=== PATIENT | female | born 1965 | race Caucasian/White ===

== ENCOUNTER 2019-01-20 07:34 | Inpatient (IN) ==
--- NOTE | 2018-12-31 15:57 | PAT Medication Instructions ---
Medication Instructions Date of Service December 31, 2018 Home Medications Habitrol Patch 1 dose TOPICAL DAILY calcium carbonate-vitamin D3 [Calcium 600 + D(3)] 1 cap PO QAM gabapentin 100 mg PO HS magnesium 200 mg PO QAM naproxen sodium [Aleve] 220 mg PO BID PRN omega 6-gdp-ryc-fish oil [Fish Oil] 1 cap PO QAM ranitidine HCl [Acid Youth [employer] Judge (ranitidine)] 150 mg PO QAM simvastatin 20 mg PO QPM ASK your surgeon for instructions naproxen sodium [Aleve] 220 mg PO BID PRN STOP taking 2 weeks before surgery (or as soon as possible if surgery is within 2 weeks) omega 2-qqn-afw-fish oil [Fish Oil] 1 cap PO QAM STOP taking 24 hours before surgery Habitrol Patch 1 dose TOPICAL DAILY DO NOT take the morning of surgery calcium carbonate-vitamin D3 [Calcium 600 + D(3)] 1 cap PO QAM magnesium 200 mg PO QAM ranitidine HCl [Acid Youth [employer] Judge (ranitidine)] 150 mg PO QAM Take evening before surgery gabapentin 100 mg PO HS simvastatin 20 mg PO QPM Other Notes If you have any questions please call us at [phone] or [phone] or [phone] or [phone]
--- NOTE | 2019-01-01 08:43 | Anesthesiology Consultation ---
Date of Service January 01, 2019 Assessment & Plan (1) Encounter for pre-operative examination: - Check test AM DOS Chart Review Chart Review: Pending: Refer to Additional Notes / Consult section (pending preop testing (labs, EKG, CXR)) and Patient seen in Pre Admission Testing Teaching & Discussion Pre-Anesthesia Teaching/Discussion Notes: Instructed NPO after midnight before surgery,except medications with 15 cc of water. Medication instructions provided according to the PAT guidelines. History Surgery Operation Date: 01/20/19 10:25 Proposed Procedures p L2-L5 Decompression and Fusion, Spinal Cord Monitoring - Surya Nguyen, Height/Weight Height: 5 ft 8.5 in Weight: 82.9 kg Allergies Allergy/AdvReac Type Severity Reaction Status Date / Time acetaminophen [From Percocet] AdvReac Vomiting Verified 12/26/18 08:03 atorvastatin [From Lipitor] AdvReac Muscle Verified 01/01/19 08:49 cramping oxycodone [From Percocet] AdvReac Vomiting Verified 12/26/18 08:03 Medications Home Medications Medication Instructions Recorded Confirmed Last Taken Habitrol Patch 1 dose TOPICAL DAILY 12/26/18 12/26/18 Unknown calcium carbonate-vitamin D3 1 cap PO QAM 12/26/18 12/26/18 Unknown [Calcium 600 + D(3)] gabapentin 100 mg PO HS 12/26/18 12/26/18 Unknown magnesium 200 mg PO QAM 12/26/18 12/26/18 Unknown naproxen sodium [Aleve] 220 mg PO BID PRN 12/26/18 12/26/18 Unknown omega 1-okj-qtp-fish oil [Fish Oil] 1 cap PO QAM 12/26/18 12/26/18 Unknown ranitidine HCl [Acid Channel Machine Operator 150 mg PO QAM 12/26/18 12/26/18 Unknown (ranitidine)] simvastatin 20 mg PO QPM 12/26/18 12/26/18 Unknown Past Medical History Medical History Degenerative disc disease GERD (gastroesophageal reflux disease) controlled 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; unknown etiology- resolved Hyperlipidemia Migraine Osteoarthritis Spinal stenosis Exercise / Class Metabolic Activity II 4-5 Yardwork/Stairs/Walk up hill Past Family History Family History Sister Epilepsy Family hx of colon cancer Brother Throat cancer Family/Other Family history of diabetes mellitus Mother Heart disease Father Heart disease Past Surgical History Surgical History History of D&C + hysteroscopy History of bone marrow biopsy History of cardiac cath 2013= NO STENTS History of colonoscopy History of decompression of ulnar nerve Lt History of esophagogastroduodenoscopy (EGD) History of sinus surgery History of tooth extraction Status post left foot surgery Past Anesthesia History No Hx of Anesthesia Complications (except post-op nausea) and No Family Hx of Anesthesia Complications History of PONV No Hx of Motion Sickness and History of PONV (+ nausea) Social History Smoking Status: Current every day smoker tobacco type: cigarettes Smoking cigarettes per day: 7-14 per day x intermittent 20+ years Do You Dip or Chew Tobacco: No Hx Alcohol Use: No Hx Substance Use: No substance use type: does not use Review of Systems URI/cough/sinus drainage x few days. Reflux controlled. Patient denies chest pain, shortness of breath, dyspnea on exertion, wheezing, palpitations. Physical Exam Vital Signs Last Vital Signs Temp 37.2 C 01/01/19 08:45 Pulse 75 01/01/19 08:45 Resp 16 01/01/19 08:45 BP 111/73 01/01/19 08:45 Pulse Ox 97 01/01/19 08:45 PHYSICAL Full neck and c-spine range of motion. Full TMJ range of motion. TMD 2.5 finger breaths Mallampati Score 2 Dentition: missing molars Lungs: clear throughout to auscultation Cardiac: regular rate and rhythm, no murmurs noted Spine: normal Carotid arteries: negative bruit Extremities: no edema Testing Echocardiogram Date: 10/01/17 EF 55-60%. Mild MR. No significant change compared to 2013 per report. Stress Test Date: 10/04/17 Type: exercise Average functional capacity. No stress induced chest pain, ischemia EKG changes or wall motion abnormalities. Negative stress EKG/ECHO test for ischemia therefore, there is a low suspicion for significant coronary artery disease. Cardiac Catheterization Date: 03/13/14 "Normal" coronary arteriography. EF 65%. Normal wall motion.
--- NOTE | 2019-01-01 09:35 | XRay Report ---
XR chest Pre-admission PA/Lat CLINICAL HISTORY: Preoperative chest COMPARISON STUDY: No previous studies for comparison. FINDINGS: The patient appears hyperinflated. There is a mild pectus deformity. The heart is normal in size. There is no failure. There is no focal pulmonary consolidation. There are no pleural effusions .[ IMPRESSION: No active disease in the chest. Electronically signed by: Butch Martínez M.D. 01/01/2019 9:34 AM
[2019-01-01 11:42] LABS: Appearance Urine Clear (Clear); Bilirubin Urine Negative (Negative); Blood Urine Negative (Negative); Color Urine Yellow; Glucose Urine UA Negative (Negative); Ketones Urine Negative (Negative); Leukocyte Esterase Urine Negative (Negative); Nitrite Urine Negative (Negative); Protein Urine Negative (Negative); Specific Gravity Urine 1.017 (1.000-1.030); Urobilinogen Urine Negative (Negative)
[2019-01-01 11:43] LABS: Hematocrit (blood only) 39.9 % (37-47); Hemoglobin 13.3 g/dL (12.0-16.0); Immature Granulocytes # (auto) 0.01 K/uL (0.00-0.02); Immature Granulocytes % (auto) 0.1 %; Lymphocytes # (auto) 1.93 K/uL (1.2-3.4); Lymphocytes % (auto) 27.4 %; Mean Corpuscular Hemoglobin 32.9 pg (25-34); Mean Corpuscular Hgb Conc 33.3 g/dL (32-36); Mean Corpuscular Volume 98.8 fL (80-100); Mean Platelet Volume 11.4 fL (7.4-10.4); Monocytes # (auto) 0.64 K/uL (0.11-0.59); Monocytes % (auto) 9.1 %; Neutrophils # (auto) 4.46 K/uL (1.4-6.5); Neutrophils % (auto) 63.4 %; Platelet Count 157 K/uL (130-400); RDW Coefficient of Variation 13.2 % (11.5-14.5); RDW Standard Deviation 47.8 fL (36.4-46.3); Red Blood Count 4.04 M/uL (4.2-5.4); White Blood Count 7.04 K/uL (4.8-10.8)
[2019-01-01 11:53] LABS: BUN Creatinine Ratio 23.5 (10-20); Calcium 9.2 mg/dl (8.5-10.1); Est GFR (African American) 111.1; Est GFR (Non-African American) 95.9; Potassium 3.7 mmol/L (3.5-5.1)
[2019-01-01 11:55] LABS: Partial Thromboplastin Time 27.3 Seconds (21.0-31.0); Prothrombin Time 10.3 Seconds (9.0-12.0)
[~2019-01-20 07:34] MED LIST: CEFAZOLIN 2000MG 2,000 MG/15 ML SYR IV SCH; CeleBREX 200 MG CAP PO SCH; GABAPENTIN 600 MG DOSE PO SCH; LR 15ML/HR IV SCH
[2019-01-20] MEDS ORDERED: fentaNYL citrate 100 MCG/2 ML VIAL IV PRN (08:27)
[2019-01-20] MEDS ORDERED: ePHEDrine sulfate 50 MG/ML AMP IV PRN (08:27)
[2019-01-20] MEDS ORDERED: ONDANSETRON INJ 2 MG/ML 2 ML VIAL IV PRN (08:27)
[2019-01-20] MEDS ORDERED: PROMETHAZINE HCL 6.25 MG in SODIUM CHLORIDE 0.9% 50 ML IV PRN (08:27)
[2019-01-20] MEDS ORDERED: ATROPINE SULFATE 0.1 MG/ML 10ML SYR IV PRN (08:27)
[2019-01-20] MEDS ORDERED: HYDROmorphone INJ 2 MG/ML SYR/VIAL IV PRN (08:27)
--- NOTE | 2019-01-20 08:59 | History & Physical Report ---
Date of Service January 20, 2019 Assessment & Plan (1) Spinal stenosis, lumbar region with neurogenic claudication: L3-L5 decompression and fusion Present on Admission?: Yes History of Present Illness Chief Complaint: Back and leg pain Primary Care Provider: David Rivero This is a 53-year-old female presents with chronic persistent back and leg symptoms. After failing extensive course of nonoperative care she is here for surgical intervention. Allergies Allergy/AdvReac Type Severity Reaction Status Date / Time oxycodone [From Percocet] AdvReac Mild Vomiting Verified 01/20/19 08:04 acetaminophen [From Percocet] AdvReac Vomiting Verified 01/20/19 08:04 atorvastatin [From Lipitor] AdvReac Muscle Verified 01/20/19 08:04 cramping Home Medications Home Medications Medication Instructions Recorded Confirmed Type Habitrol Patch 1 dose TOPICAL DAILY 12/26/18 01/20/19 History calcium carbonate-vitamin D3 1 cap PO QAM 12/26/18 01/20/19 History [Calcium 600 + D(3)] gabapentin 100 mg PO HS 12/26/18 01/20/19 History magnesium 200 mg PO QAM 12/26/18 01/20/19 History naproxen sodium [Aleve] 220 mg PO BID PRN 12/26/18 01/20/19 History omega 6-yym-qxc-fish oil [Fish Oil] 1 cap PO QAM 12/26/18 01/20/19 History ranitidine HCl [Acid [place] 150 mg PO QAM 12/26/18 01/20/19 History (ranitidine)] simvastatin 20 mg PO QPM 12/26/18 01/20/19 History Past Med/Surg History Medical History Degenerative disc disease GERD (gastroesophageal reflux disease) controlled History of ITP ; unknown etiology- resolved Hyperlipidemia Migraine Osteoarthritis Spinal stenosis Surgical History History of D&C + hysteroscopy History of bone marrow biopsy History of cardiac cath 2013= NO STENTS History of colonoscopy History of decompression of ulnar nerve Lt History of esophagogastroduodenoscopy (EGD) History of sinus surgery History of tooth extraction Status post left foot surgery Family History Sister Epilepsy Family hx of colon cancer Brother Throat cancer Family/Other Family history of diabetes mellitus Mother Heart disease Father Heart disease Social History Preferred Language: Azeri Communication Ability: Effective Explosives Truck Driver Required: No Beliefs That Will Affect Care: None Current Living Situation: Family Current Living Situation Comment: LIVES W/ MOTHER AND SISTER Other Information That Helps Us Care for You: No Feels Safe at Home: Yes Safety Concerns: Feels Safe At This Time Smoking Status: Current every day smoker Tobacco Type: cigarettes ; Cigarettes Per Day: 7-14 per day x intermittent 20+ years ; Do You Dip or Chew Tobacco: No ; Second Hand Exposure: Yes ; Tobacco Cessation Education Requested by Patient: No (CURRENTLY ON HABITROL PATCH) Hx Alcohol Use: No Hx Substance Use: No Physical Exam Physical Exam: Patient is alert and oriented neurologically intact. Results & Data Vital Signs (Past 12 Hours) Vital Signs Temp Pulse Resp BP Pulse Ox 01/20/19 08:08 36.8 C 70 20 124/72 97
[2019-01-20 09:02] LABS: Pregnancy Test, Serum Negative (Negative)
[2019-01-20] MEDS ORDERED: BUPIVACAINE/EPINEPHRINE 0.5% MPF 1:200,000 30 ML VIAL ONE (09:09)
[2019-01-20] MEDS ORDERED: BACITRACIN INJ 50,000 UNIT VIAL ONE (09:09)
[2019-01-20] MEDS ORDERED: GLYCOPYRROLATE 0.2 MG/ML VIAL ONE (09:11)
[2019-01-20] MEDS ORDERED: PROPOFOL IV EMULSION 10 MG/ML 20 ML VIAL IV ONE (09:11)
[2019-01-20] MEDS ORDERED: DEXAMETHASONE SOD INJ 4 MG/ML VIAL ONE (09:11)
[2019-01-20] MEDS ORDERED: ONDANSETRON INJ 2 MG/ML 2 ML VIAL ONE (09:11)
[2019-01-20] MEDS ORDERED: NEOSTIGMINE METHYLSULFATE 1 MG/ML 10ML VIAL ONE (09:11)
[2019-01-20] MEDS ORDERED: ROCURONIUM BROMIDE 10 MG/ML 5 ML VIAL ONE (09:11)
[2019-01-20] MEDS ORDERED: MIDAZOLAM HCL 1 MG/ML 2ML VIAL ONE (09:11)
[2019-01-20] MEDS ORDERED: LIDOCAINE HCL 2% 2 ML VIAL/AMP(20MG/ML) INFIL ONE (09:11)
[2019-01-20] MEDS ORDERED: HYDROmorphone INJ 2 MG/ML SYR/VIAL ONE (09:12)
--- NOTE | 2019-01-20 09:18 | History & Physical Bridge Note ---
Date of Service January 20, 2019 History & Physical Bridge Note I have examined the patient, reviewed the History & Physical and in the interval since the performance of the History & Physical I have noted the following changes of clinical significance: no changes noted Decompression fusion L2-L5
[2019-01-20] MEDS ORDERED: FLOSEAL HEMOSTATIC MATRIX 10ML TOP ONE (10:07)
[2019-01-20] MEDS ORDERED: DURASEAL DURAL SEALANT 5ML TOP ONE (10:57)
[2019-01-20] MEDS ORDERED: fentaNYL citrate 100 MCG/2 ML VIAL ONE (11:45)
[2019-01-20] MEDS ORDERED: KETOROLAC 30 MG/ML VIAL ONE (11:45)
--- NOTE | 2019-01-20 11:50 | Operative Report ---
Post Operative Report Pre & Post Diagnosis Operation Date: 01/20/19 09:15 Pre-Op Diagnosis: Spinal Stenosis, Lumbar Region with Neurogenic Claudication Post-Op Diagnosis: Spinal Stenosis, Lumbar Region with Neurogenic Claudication I identified the patient and participated in the time-out.: Yes Procedure Operation Date: 01/20/19 09:15 Actual Procedures #1 lumbar decompression with bilateral medial facetectomies foraminotomies L2-3 L3-4 L4-5. #2 posterior spinal fusion L2-3 L3-4 L4-5. #3 placed posterior segmental instrumentation from L2-3 L3-4 L4-5. #4 placement of locally harvested morselized autograft in the posterior lateral gutters. #5 placement infuse collagen sponge, master graft in the posterior lateral gutters. Surgeon Surya Nguyen DO Senior Clinical Project Manager Jennifer Glass Estimated Blood Loss 200 Findings Consistent with Post-Op Diagnosis Specimens None Indications This is a 53-year-old female presents with above-mentioned diagnosis after failing extensive course of nonoperative care like to undergo the above- mentioned procedure. Description of Procedure The patient was met with identified and informed consent obtained. Patient was then taken to the operative suite underwent intubation placed in the prone position the Selvin table on top of the Roly frame. All bony prominences well-padded eyes inspected to ensure no external pressure placed upon the peer at this point the lumbar spine was prepped and draped in a sterile fashion. Sharp dissection with the assistance of Bovie cautery was performed down to and exposing the lamina and transverse processes of L2-L3 L4-L5 bilaterally. From a caudal cephalad fashion complete laminectomy of L4 L3 L2 was performed including bilateral medial facetectomies and foraminotomies to address severe stenosis. Incidental durotomy was noted and was closed with 4-0 Nurolon for watertight seal. A small portion of DuraGen patch was also placed as well as DuraSeal to ensure no further leakage. Pedicle screws were then placed in L2 L3-L4-L5 bilaterally with assistance of fluoroscopy the purposes ludy locked in the position. The transverse processes of L2 L3-L4-L5 burred to subcortical bleeding bone. Infuse collagen sponge master graft and local autograft placed in the posterior lateral gutters. 15 round WALT drain inserted. The incision was then closed with 1 Vicryl in the fascia 2-0 Vicryl subcutaneous and 4 Monocryl for final skin closure. Steri-Strip sterile dressings placed. Patient will continue to PACU stable condition. Please note Jennifer Glass present throughout the entire procedure involved the patient positioning complex portions of the surgery and final skin closure. Lastly spinal cord monitoring was utilized that the procedure and no changes noted. I attest to the content of the Intraoperative Record and any orders documented therein. Any exceptions are noted below.
--- NOTE | 2019-01-20 12:36 | Fluoroscopy Report ---
FL lumbar spine 2-3V CLINICAL HISTORY: 53 years-old Female presenting with L2-5 DECOMPRESSION/FUSION. TECHNIQUE: 3 fluoroscopic image(s) recorded as part of an intraoperative procedure. COMPARISON: None. FINDINGS/IMPRESSION: Postsurgical changes of posterior bilateral transpedicular Schoenrock fixation from L2 to L5 with oneill inectomy defects. Slight levoscoliosis centered at L3-4. Please see surgical report for further details. Fluoroscopy dosage (mGy): 43.80. Fluoroscopy time: 36.1 seconds. Number or time of high level fluoroscopy (HLF), digital spot, or digital subtraction images: 6.7 seco nds. Electronically signed by: Leonardo Cortez M.D. 01/20/2019 12:34 PM
--- NOTE | 2019-01-20 13:12 | Anesthesiology Progress Note ---
Date of Service January 20, 2019 Anesthesia Post Procedure Vital Signs Vital Signs: Temp Pulse Pulse Resp BP BP Pulse Ox 01/20/19 13:05 36.1 C L 77 18 129/67 100 01/20/19 12:55 69 12 94/58 L 98 01/20/19 12:45 76 12 123/65 98 01/20/19 12:35 67 12 117/62 100 01/20/19 12:25 77 17 138/64 100 01/20/19 12:18 36.0 C L 85 17 124/70 99 01/20/19 08:08 36.8 C 70 20 124/72 97 Pain Intensity Lower Back: Pain Intensity: 0 Transfer of Care Handoff Completed per policy Notes Mental Status: alert / awake / arousable Patient Amnestic to Procedure: Yes Nausea / Vomiting: adequately controlled Pain: adequately controlled Airway Patency, RR, SpO2: stable & adequate BP & HR: stable & adequate Hydration State: stable & adequate Anesthetic Complications: no major complications apparent
[2019-01-20] MEDS ORDERED: HYDROmorphone INJ 0.5 MG/0.5 ML SYR IV PRN (13:34)
[2019-01-20] MEDS ORDERED: METOCLOPRAMIDE HCL INJ 5 MG/ML 2 ML VIAL IV PRN (13:34)
[2019-01-20] MEDS ORDERED: LORazepam 0.5 MG/1 ML VIAL IV PRN (13:34)
[2019-01-20] MEDS ORDERED: PROMETHAZINE HCL 12.5 MG in SODIUM CHLORIDE 0.9% 50 ML IV PRN (13:34)
[2019-01-20] MEDS ORDERED: DO NOT ADMINISTER FLU VACCINE PRN (13:34)
[2019-01-20] MEDS ORDERED: FAMOTIDINE 20 MG TAB PO PRN (13:34)
[2019-01-20] MEDS ORDERED: ALUMINUM/MAGNESIUM SUSP 30 ML UDC PO PRN (13:34)
[2019-01-20] MEDS ORDERED: ONDANSETRON 4 MG TAB PO PRN (13:34)
[2019-01-20] MEDS ORDERED: bisacodyL 10 MG SUPP PR PRN (13:34)
[2019-01-20] MEDS ORDERED: SOD PHOSPHATE/SOD BIPHOSPHATE ENEMA 132 ML BTL PR PRN (13:34)
[2019-01-20] MEDS ORDERED: LORazepam 0.5 MG TAB PO PRN (13:34)
[2019-01-20] MEDS ORDERED: MAGNESIUM HYDROXIDE SUSP 30 ML UDC PO PRN (13:34)
[2019-01-20] MEDS ORDERED: DO NOT ADMINISTER PNEUMOCOCCAL VACCINE PRN (13:34)
[2019-01-20] MEDS ORDERED: NALOXONE HCL 0.4 MG/1 ML VIAL/CARP IV PRN (13:34)
[2019-01-20] MEDS: KETOROLAC TROMETHAMINE 15 MG/ML VIAL IV SCH ×2 (14:41→21:02)
[2019-01-20] MEDS: LACTATED RINGER'S 1,000 ML IV SCH ×2 (14:41→21:08)
[2019-01-20] MEDS: ONDANSETRON INJ 2 MG/ML 2 ML VIAL IV PRN (17:18)
[2019-01-20] MEDS: HYDROmorphone INJ 1 MG/ML SYRINGE IV PRN (17:25)
[2019-01-20] MEDS: CEFAZOLIN 2000MG 2,000 MG/15 ML SYR IV SCH (17:25)
[2019-01-20] MEDS: GABAPENTIN 100 MG CAP PO SCH (21:02)
[2019-01-20] MEDS: DOCUSATE SODIUM/SENNA 50/8.6MG TAB PO SCH (21:02)
[2019-01-20] MEDS: SIMVASTATIN 20 MG TAB PO SCH (21:03)
[2019-01-21] MEDS: CEFAZOLIN 2000MG 2,000 MG/15 ML SYR IV SCH (01:08)
[2019-01-21] MEDS: ONDANSETRON INJ 2 MG/ML 2 ML VIAL IV PRN (01:19)
[2019-01-21] MEDS: ACETAMINOPHEN 1,000 MG/100 ML VIAL IV PRN (01:20)
[2019-01-21] MEDS: KETOROLAC TROMETHAMINE 15 MG/ML VIAL IV SCH ×2 (02:31→08:53)
[2019-01-21] MEDS: LACTATED RINGER'S 1,000 ML IV SCH ×4 (03:59→22:45)
[2019-01-21 04:56] LABS: Hematocrit (blood only) 32.3 % (37-47); Hemoglobin 10.7 g/dL (12.0-16.0); Immature Granulocytes # (auto) 0.02 K/uL (0.00-0.02); Immature Granulocytes % (auto) 0.2 %; Lymphocytes # (auto) 1.18 K/uL (1.2-3.4); Lymphocytes % (auto) 13.5 %; Mean Corpuscular Hemoglobin 31.9 pg (25-34); Mean Corpuscular Hgb Conc 33.1 g/dL (32-36); Mean Corpuscular Volume 96.4 fL (80-100); Mean Platelet Volume 10.1 fL (7.4-10.4); Monocytes # (auto) 0.66 K/uL (0.11-0.59); Monocytes % (auto) 7.6 %; Neutrophils # (auto) 6.87 K/uL (1.4-6.5); Neutrophils % (auto) 78.7 %; Platelet Count 168 K/uL (130-400); RDW Coefficient of Variation 12.7 % (11.5-14.5); RDW Standard Deviation 45.2 fL (36.4-46.3); Red Blood Count 3.35 M/uL (4.2-5.4); White Blood Count 8.73 K/uL (4.8-10.8)
[2019-01-21 05:20] LABS: BUN Creatinine Ratio 18.8 (10-20); Creatinine Clr Calc Pharmacy 100.8 ml/min; Est GFR (African American) 107.5; Est GFR (Non-African American) 92.7; Potassium 4.4 mmol/L (3.5-5.1)
[2019-01-21] MEDS: POLYETHYLENE (MIRALAX) 17 GM PACK PO SCH ×4 (05:46→23:29)
--- NOTE | 2019-01-21 07:59 | Anesthesiology Progress Note ---
Date of Service January 21, 2019 Anesthesia Post Procedure Vital Signs Vital Signs: Temp Pulse Pulse Resp BP BP Pulse Ox 01/21/19 07:15 37.1 C 63 16 92/56 L 97 01/21/19 03:25 36.8 C 83 16 96/57 L 97 01/20/19 23:05 36.8 C 75 16 94/54 L 98 01/20/19 19:10 36.3 C L 95 H 16 100/59 L 100 01/20/19 16:32 36.3 C L 99 H 15 100/58 L 100 01/20/19 15:30 36.2 C L 86 12 100/61 100 01/20/19 14:32 81 16 107/64 100 01/20/19 14:04 36.3 C L 75 15 112/65 98 01/20/19 13:30 36.4 C L 85 16 112/69 99 01/20/19 13:20 80 12 115/61 99 01/20/19 13:05 36.1 C L 77 18 129/67 100 01/20/19 12:55 69 12 94/58 L 98 01/20/19 12:45 76 12 123/65 98 01/20/19 12:35 67 12 117/62 100 01/20/19 12:25 77 17 138/64 100 01/20/19 12:18 36.0 C L 85 17 124/70 99 01/20/19 08:08 36.8 C 70 20 124/72 97 Pain Intensity Lower Back: Pain Intensity: 0 Notes Mental Status: alert / awake / arousable and participated in evaluation Patient Amnestic to Procedure: Yes Nausea / Vomiting: adequately controlled Pain: adequately controlled Airway Patency, RR, SpO2: stable & adequate BP & HR: stable & adequate Hydration State: stable & adequate Anesthetic Complications: no major complications apparent and Pt Satisfied with anesthetic care
[2019-01-21] MEDS: CALCIUM 600MG + VIT D 400 IU TAB PO SCH (08:54)
[2019-01-21] MEDS: OMEGA-3 (PURIFIED FISH OIL) 1 GM CAP PO SCH (08:55)
[2019-01-21] MEDS: MAGNESIUM OXIDE 400 MG TAB PO SCH (08:55)
[2019-01-21] MEDS ORDERED: HABITROL TOP SCH (09:00)
[2019-01-21] MEDS: TRAMADOL HCL 50 MG TABLET PO PRN ×2 (10:58→22:48)
--- NOTE | 2019-01-21 11:31 | Orthopedic Progress Note ---
Date of Service January 21, 2019 Assessment & Plan (1) Spinal stenosis, lumbar region with neurogenic claudication: At this time we will allow her to sit up in bed transfer to chair as tolerated. Pending her progress we may initiate physical therapy tomorrow. Present on Admission?: Yes Subjective Patient's pain is well controlled. She has no leg pain. Denies any headaches. Physical Exam Physical Exam: On exam she is good strength testing appears comfortable. I had her sit up she was able to tolerate this without difficulty. Results & Data Vital Signs (Past 12 Hours) Vital Signs Temp Pulse Resp BP Pulse Ox 01/21/19 07:15 37.1 C 63 16 92/56 L 97 01/21/19 03:25 36.8 C 83 16 96/57 L 97
[2019-01-21] MEDS: HYDROmorphone INJ 1 MG/ML SYRINGE IV PRN (16:21)
[2019-01-21] MEDS: DOCUSATE SODIUM/SENNA 50/8.6MG TAB PO SCH (20:26)
[2019-01-21] MEDS: GABAPENTIN 100 MG CAP PO SCH (20:26)
[2019-01-21] MEDS: SIMVASTATIN 20 MG TAB PO SCH (20:26)
[2019-01-21] MEDS: ACETAMINOPHEN 500 MG TAB PO PRN (21:25)
[2019-01-22] MEDS: ONDANSETRON INJ 2 MG/ML 2 ML VIAL IV PRN (00:32)
[2019-01-22] MEDS: LACTATED RINGER'S 1,000 ML IV SCH ×3 (05:35→19:51)
[2019-01-22] MEDS: POLYETHYLENE (MIRALAX) 17 GM PACK PO SCH ×3 (05:36→18:31)
[2019-01-22] MEDS: ACETAMINOPHEN 1,000 MG/100 ML VIAL IV PRN ×2 (07:43→16:14)
[2019-01-22] MEDS: MAGNESIUM OXIDE 400 MG TAB PO SCH (07:52)
[2019-01-22] MEDS: OMEGA-3 (PURIFIED FISH OIL) 1 GM CAP PO SCH (07:52)
[2019-01-22] MEDS: CALCIUM 600MG + VIT D 400 IU TAB PO SCH (07:52)
--- NOTE | 2019-01-22 10:17 | Orthopedic Progress Note ---
Date of Service January 22, 2019 Assessment & Plan (1) Spinal stenosis, lumbar region with neurogenic claudication: At this time am concerned she still struggling with a low-grade CSF leak. She was placed n.p.o. after midnight. If she continues to have headaches tomorrow we may consider exploration of the dural repair. She understands agrees. Also be getting further hydration with normal saline today. Present on Admission?: Yes Subjective Patient still complaining of a dull headache. It does not seem to be related to position. She states that it is present whether she is lying supine or sitting up. She denies any significant back pain denies any leg pain. Physical Exam Physical Exam: On exam she is neurologically intact. She is up in bed. She does demonstrate some nuchal signs with neck flexion. Results & Data Vital Signs (Past 12 Hours) Vital Signs Temp Pulse Resp BP Pulse Ox 01/22/19 07:29 36.8 C 91 H 18 125/71 92 01/22/19 00:24 37.3 C 01/21/19 23:57 38.2 C H 96 H 16 121/64 92
[2019-01-22] MEDS: SODIUM CHLORIDE 0.9% 1000ML 1,000 ML IV SCH ×2 (10:24→18:31)
[2019-01-22] MEDS: TRAMADOL HCL 50 MG TABLET PO PRN (12:13)
[2019-01-22] MEDS: GABAPENTIN 100 MG CAP PO SCH (21:06)
[2019-01-22] MEDS: DOCUSATE SODIUM/SENNA 50/8.6MG TAB PO SCH (21:06)
[2019-01-22] MEDS: SIMVASTATIN 20 MG TAB PO SCH (21:06)
[2019-01-23] MEDS: POLYETHYLENE (MIRALAX) 17 GM PACK PO SCH ×2 (00:02→05:36)
[2019-01-23] MEDS: ACETAMINOPHEN 500 MG TAB PO PRN (00:07)
[2019-01-23] MEDS: LACTATED RINGER'S 1,000 ML IV SCH (01:03)
[2019-01-23] MEDS: SODIUM CHLORIDE 0.9% 1000ML 1,000 ML IV SCH ×3 (02:01→18:13)
[2019-01-23] MEDS: TRAMADOL HCL 50 MG TABLET PO PRN ×3 (05:40→15:37)
[2019-01-23] MEDS: OMEGA-3 (PURIFIED FISH OIL) 1 GM CAP PO SCH (08:13)
[2019-01-23] MEDS: CALCIUM 600MG + VIT D 400 IU TAB PO SCH (08:13)
[2019-01-23] MEDS: MAGNESIUM OXIDE 400 MG TAB PO SCH (08:13)
[2019-01-23] MEDS ORDERED: Nursing to Pharmacy Communication ONE (10:04)
[2019-01-23] MEDS: ONDANSETRON INJ 2 MG/ML 2 ML VIAL IV PRN (12:54)
[2019-01-23] MEDS: NICOTINE 14 MG/24 HR PATCH TD SCH (14:42)
--- NOTE | 2019-01-23 15:32 | Orthopedic Progress Note ---
Date of Service January 23, 2019 Assessment & Plan (1) Spinal stenosis, lumbar region with neurogenic claudication: At this time we will continue to observe the patient will recommend bed to chair as tolerated. Most likely tomorrow initiate a course of physical therapy. Hopefully discharge home later half of this weekend. Present on Admission?: Yes Subjective Patient's back pain is controlled she was able to tolerate getting in and out of the bed to the chair. She is having some neck pain but no headaches. No nausea vomiting. No photophobia. She did have a bowel movement today without di fficulty today. Physical Exam Physical Exam: On exam she is excellent strength testing. She appears comfor table. She does have some tenderness palpation of the cervical thoracic junction no upper extremity weakness or radicular complaints. Results & Data Vital Signs (Past 12 Hours) Vital Signs Temp Pulse Resp BP Pulse Ox 01/23/19 15:25 37.4 C 82 16 99/68 L 96 01/23/19 10:08 91/52 L 01/23/19 09:45 90/61 L 01/23/19 07:27 37.2 C 91 H 18 122/70 93
[2019-01-23] MEDS: ACETAMINOPHEN 1,000 MG/100 ML VIAL IV PRN (19:14)
[2019-01-23] MEDS: GABAPENTIN 100 MG CAP PO SCH (20:42)
[2019-01-23] MEDS: SIMVASTATIN 20 MG TAB PO SCH (20:42)
[2019-01-23] MEDS: DOCUSATE SODIUM/SENNA 50/8.6MG TAB PO SCH (20:42)
[2019-01-24] MEDS: SODIUM CHLORIDE 0.9% 1000ML 1,000 ML IV SCH ×3 (02:18→18:00)
[2019-01-24] MEDS: TRAMADOL HCL 50 MG TABLET PO PRN ×4 (02:23→18:02)
[2019-01-24 05:36] LABS: Hematocrit (blood only) 33.1 % (37-47); Hemoglobin 11.1 g/dL (12.0-16.0)
[2019-01-24] MEDS: OMEGA-3 (PURIFIED FISH OIL) 1 GM CAP PO SCH (09:14)
[2019-01-24] MEDS: NICOTINE 14 MG/24 HR PATCH TD SCH (09:14)
[2019-01-24] MEDS: CALCIUM 600MG + VIT D 400 IU TAB PO SCH (09:14)
[2019-01-24] MEDS: MAGNESIUM OXIDE 400 MG TAB PO SCH (09:14)
--- NOTE | 2019-01-24 13:03 | Orthopedic Progress Note ---
Date of Service January 24, 2019 Assessment & Plan (1) Spinal stenosis, lumbar region with neurogenic claudication: This time continue physical therapy today. DC her catheter. Hopefully discharge home later half this weekend. Present on Admission?: Yes Subjective Patient's back pain is controlled she no longer has any headaches. Denies any nausea or vomiting. Physical Exam Physical Exam: On exam patient is in the chair at the bedside is good strength testing. Appears comfortable. Results & Data Vital Signs (Past 12 Hours) Vital Signs Temp Pulse Resp BP Pulse Ox 01/24/19 07:05 37.4 C 79 16 112/70 94
[2019-01-24] MEDS: GABAPENTIN 100 MG CAP PO SCH (20:25)
[2019-01-24] MEDS: DOCUSATE SODIUM/SENNA 50/8.6MG TAB PO SCH (20:25)
[2019-01-24] MEDS: SIMVASTATIN 20 MG TAB PO SCH (20:25)
[2019-01-25] MEDS: TRAMADOL HCL 50 MG TABLET PO PRN ×3 (00:28→20:17)
[2019-01-25] MEDS: SODIUM CHLORIDE 0.9% 1000ML 1,000 ML IV SCH ×2 (00:34→08:04)
[2019-01-25] MEDS: CALCIUM 600MG + VIT D 400 IU TAB PO SCH (08:02)
[2019-01-25] MEDS: MAGNESIUM OXIDE 400 MG TAB PO SCH (08:02)
[2019-01-25] MEDS: OMEGA-3 (PURIFIED FISH OIL) 1 GM CAP PO SCH (08:02)
[2019-01-25] MEDS: NICOTINE 14 MG/24 HR PATCH TD SCH (08:05)
--- NOTE | 2019-01-25 09:39 | Orthopedic Progress Note ---
Date of Service January 25, 2019 Assessment & Plan (1) Spinal stenosis, lumbar region with neurogenic claudication: This time we will continue physical therapy discontinue IV fluids hopefully discharge home tomorrow. Present on Admission?: Yes Subjective Patient's back pain is controlled. She has no headaches. She is initiating physical therapy and tolerating this well. Physical Exam Physical Exam: On exam patient is in the chair at the bedside is good strength testing. Results & Data Vital Signs (Past 12 Hours) Vital Signs Temp Pulse Resp BP Pulse Ox 01/25/19 07:29 37.0 C 81 16 110/74 94 01/25/19 00:25 37.2 C 01/24/19 22:55 37.7 C H 92 H 18 99/65 L 93
[2019-01-25] MEDS: DOCUSATE SODIUM/SENNA 50/8.6MG TAB PO SCH (20:12)
[2019-01-25] MEDS: SIMVASTATIN 20 MG TAB PO SCH (20:12)
[2019-01-25] MEDS: GABAPENTIN 100 MG CAP PO SCH (20:12)
[2019-01-25] MEDS: HYDROCODONE/ACETAMOPHEN 5/325MG TAB PO PRN (23:04)
[2019-01-26] MEDS: OMEGA-3 (PURIFIED FISH OIL) 1 GM CAP PO SCH (08:34)
[2019-01-26] MEDS: MAGNESIUM OXIDE 400 MG TAB PO SCH (08:34)
[2019-01-26] MEDS: CALCIUM 600MG + VIT D 400 IU TAB PO SCH (08:34)
[2019-01-26] MEDS: NICOTINE 14 MG/24 HR PATCH TD SCH (08:35)
[2019-01-26] MEDS: HYDROCODONE/ACETAMOPHEN 5/325MG TAB PO PRN (08:35)
--- NOTE | 2019-01-26 10:24 | Discharge Summary ---
Date of Service January 26, 2019 Admission HPI Per Admitting Provider This is a 53-year-old female presents with chronic persistent back and leg symptoms. After failing extensive course of nonoperative care she is here for surgical intervention. Principal Diagnosis Lumbar spinal stenosis with neurogenic claudication Discharge Data Allergies Allergy/AdvReac Type Severity Reaction Status Date / Time oxycodone [From Percocet] AdvReac Mild Vomiting Verified 01/20/19 08:04 acetaminophen [From Percocet] AdvReac Vomiting Verified 01/20/19 08:04 atorvastatin [From Lipitor] AdvReac Muscle Verified 01/20/19 08:04 cramping Consultations 01/20/19 13:34 Consult Case Management - Discharge Planning Routine Procedures Performed Operation Date: 01/20/19 09:15 Actual Procedures p L2-L5 Decompression and Fusion, Use of Infuse and Osteoamp, Spinal Cord Monitoring(Not Applicable) - Surya Nguyen DO s Repair of Dural Tear with Duraseal and Duragen(Not Applicable) - Surya Nguyen DO Operation Date: 01/23/19 09:00 <No data on this case meets the specified criteria> Ordered Studies 01/20/19 09:15 FL fluoroscopy <1hr Routine FL lumbar spine 2-3V Routine Hospital Course (1) Spinal stenosis, lumbar region with neurogenic claudication: Patient with multilevel lumbar depression fusion tolerated as well as taken to orthopedic for postoperative. I did keep her down postop day #1 postop day 2 would begin mobilization. There was some concern about a persistent CSF leak which was not the case. In fact she had difficulty with headache secondary to cessation of smoking. NicoDerm Patch was ordered and she improved dramatically. She is up and ambulate with therapy leg pain improved back pain controlled neurologically intact subsequent discharge home. Discharge orders instructions from the chart for further review. Total Time Total Time Spent Total Time Spent (In Minutes): 30 minutes Discharge Plan Discharge Items Patient Disposition: Home - Self-Care Reason For Visit: Spinal Stenosis, Lumbar Region with Neurogenic Cla Discharge Diagnosis: ACTIVITY RECOMMENDATIONS: SELF CARE INSTRUCTIONS AFTER THORACIC/LUMBAR FUSIONS 1. You may walk to your tolerance. It is good exercise for your legs and back. Expect some back and intermittent leg aches and pains. 2. You may perform "counter-top" level activities (make a sandwich, felipe with a project, etc.). 3. No bending or lifting of more than 10 pounds or back twisting of any nature (roll like a log when turning in bed). 4. You may ride in a car for 20-30 minutes at a time. No driving until after your first visit with your doctor. 5. Frequent changes of position and restricting sitting to 30 minutes at a time will help limit the amount of back spasms and stiffness you may experience. 6. You may discontinue the use of ambulatory aids (cane, crutches, etc.) once your strength and confidence allow. 7. You may air compressor engineer the shower and let water strike your incision when you arrive home at least once daily. Do not take a tub bath, sit in a hot tub or go into a swimming pool until after your first recheck in the office. SPECIAL CARE INSTRUCTIONS: VERY IMPORTANT TO READ AND REVIEW A. Your surgical incision has been closed with a cosmetic suture under the skin that will dissolve in about 6 weeks. In 14 days, you can use a pair of clean scissors and cut the suture that is left outside of the skin at the ends of your incision. 1. The small skin tapes can be removed 7 days after surgery if they have not fallen off by that point. 2. You may keep the wound open to air as much as possible to promote healing after post-op day number 5 unless told otherwise by your doctor. 3. If you think the wound looks like it is becoming infected (redness or worsening drainage) and/or you are experiencing fever, chill or worsening back pain and muscle spasms, contact the office so that we may evaluate you as soon as possible. B. Complications are uncommon, but please contact us if you have any signs or symptoms of: 1. wound infection (fever higher than 102.5 degrees F, redness, separation of wound, drainage, or increasing pain from the incision) 2. blood clots in legs (pain, swelling, redness and warmth in legs) 3. urinary tract infection (fever higher than 102.5 degrees F, burning upon urination or increased frequency of urination) 4. nerve problems (inability to walk on your toes or heels, numbness, loss of bowel or bladder control) 5. any other symptoms that concern you C. Please call the office at if you have any concerns or questions about your operation or recovery. D. No smoking! Smoking drastically decreases the chance of a solid fusion. E. Do not take any anti-inflammatory medications (Indocin, Advil, Motrin, Aspirin, Naprosyn, etc.) as these may inhibit the chance of a solid fusion. Tylenol is okay to take for pain. MANAGING PAIN AFTER SPINAL SURGERY 1. Narcotic medication is intended for short-term use and will be provided for surgical pain. Surgical pain usually lasts for a period of 4-6 weeks. Narcotic medication includes Percocet, Vicodin, Darvocet, Tylenol #3 or Lortab. 2. Longer-term pain is more appropriately treated with non-narcotic medication such as Tylenol ES. 3. Muscle spasm is not appropriately treated with narcotics. Muscle relaxers such as Soma, Flexeril or Skelaxin can be used along with Tylenol ES. 4. Remember that we all live with some "aches and pains". This is not unusual or uncommon after an injury or as we get older. a. Back pain is expected and may include muscle spasms for 4 to 6 weeks after surgery. The pain should gradually improve. If the pain worsens for no apparent reason, please contact the office. b. Intermittent leg pain may also be experienced and should not be concerned about unless it worsens for no apparent reason. If so, please contact the office. 5. We will provide appropriate medication within the normal guidelines of their prescribed use. We will also be very cautious and aware of potential abuse and extended duration of patients' medication needs. a. Pain medications are for your comfort and to assist with sleep and rest so that the tissue can heal. They are not provided in order to return to normal activity and should not be used through the day. To do so or worsening pain at night can result from ongoing tissue damage and development of tolerance to the prescribed medicine. 6. Please allow 2-3 days to process refills. Prescriptions will not be mailed but must be picked up at the office. FOLLOW UP VISIT: Keep your scheduled follow-up appointment. Any questions, please call the office at . Activity: Per Instructions section Non-emergency contact: Primary Care Provider Call non-emergency contact if: you have any medication questions Follow-up/Referrals: David Rivero M.D. [Primary Care Provider] - Diet: Regular Addtl Attending Provider Instructions: ACTIVITY RECOMMENDATIONS: SELF CARE INSTRUCTIONS AFTER THORACIC/LUMBAR FUSIONS 1. You may walk to your tolerance. It is good exercise for your legs and back. Expect some back and intermittent leg aches and pains. 2. You may perform "counter-top" level activities (make a sandwich, felipe with a project, etc.). 3. No bending or lifting of more than 10 pounds or back twisting of any nature (roll like a log when turning in bed). 4. You may ride in a car for 20-30 minutes at a time. No driving until after your first visit with your doctor. 5. Frequent changes of position and restricting sitting to 30 minutes at a time will help limit the amount of back spasms and stiffness you may experience. 6. You may discontinue the use of ambulatory aids (cane, crutches, etc.) once your strength and confidence allow. 7. You may air compressor engineer the shower and let water strike your incision when you arrive home at least once daily. Do not take a tub bath, sit in a hot tub or go into a swimming pool until after your first recheck in the office. SPECIAL CARE INSTRUCTIONS: VERY IMPORTANT TO READ AND REVIEW A. Your surgical incision has been closed with a cosmetic suture under the skin that will dissolve in about 6 weeks. In 14 days, you can use a pair of clean scissors and cut the suture that is left outside of the skin at the ends of your incision. 1. The small skin tapes can be removed 7 days after surgery if they have not fallen off by that point. 2. You may keep the wound open to air as much as possible to promote healing after post-op day number 5 unless told otherwise by your doctor. 3. If you think the wound looks like it is becoming infected (redness or worsening drainage) and/or you are experiencing fever, chill or worsening back pain and muscle spasms, contact the office so that we may evaluate you as soon as possible. B. Complications are uncommon, but please contact us if you have any signs or symptoms of: 1. wound infection (fever higher than 102.5 degrees F, redness, separation of wound, drainage, or increasing pain from the incision) 2. blood clots in legs (pain, swelling, redness and warmth in legs) 3. urinary tract infection (fever higher than 102.5 degrees F, burning upon urination or increased frequency of urination) 4. nerve problems (inability to walk on your toes or heels, numbness, loss of bowel or bladder control) 5. any other symptoms that concern you C. Please call the office at if you have any concerns or questions about your operation or recovery. D. No smoking! Smoking drastically decreases the chance of a solid fusion. E. Do not take any anti-inflammatory medications (Indocin, Advil, Motrin, Aspirin, Naprosyn, etc.) as these may inhibit the chance of a solid fusion. Tylenol is okay to take for pain. MANAGING PAIN AFTER SPINAL SURGERY 1. Narcotic medication is intended for short-term use and will be provided for surgical pain. Surgical pain usually lasts for a period of 4-6 weeks. Narcotic medication includes Percocet, Vicodin, Darvocet, Tylenol #3 or Lortab. 2. Longer-term pain is more appropriately treated with non-narcotic medication such as Tylenol ES. 3. Muscle spasm is not appropriately treated with narcotics. Muscle relaxers such as Soma, Flexeril or Skelaxin can be used along with Tylenol ES. 4. Remember that we all live with some "aches and pains". This is not unusual or uncommon after an injury or as we get older. a. Back pain is expected and may include muscle spasms for 4 to 6 weeks after surgery. The pain should gradually improve. If the pain worsens for no apparent reason, please contact the office. b. Intermittent leg pain may also be experienced and should not be concerned about unless it worsens for no apparent reason. If so, please contact the office. 5. We will provide appropriate medication within the normal guidelines of their prescribed use. We will also be very cautious and aware of potential abuse and extended duration of patients' medication needs. a. Pain medications are for your comfort and to assist with sleep and rest so that the tissue can heal. They are not provided in order to return to normal activity and should not be used through the day. To do so or worsening pain at night can result from ongoing tissue damage and development of tolerance to the prescribed medicine. 6. Please allow 2-3 days to process refills. Prescriptions will not be mailed but must be picked up at the office. FOLLOW UP VISIT: Keep your scheduled follow-up appointment. Any questions, please call the office at . Pending Studies at Discharge: No Stand-Alone Forms: My [facility], Smoking Cessation Medications and DC Order Prescriptions: New tramadol 50 mg tablet 50 mg PO Q6H PRN (Reason: pain, moderate) Qty: 30 RF: 0 hydrocodone-acetaminophen 5-325 mg tablet See Rx Instructions .ROUTE .COMPLEX PRN (Reason: pain) Qty: 30 RF: 0 Continued simvastatin 20 mg Tablet 20 mg PO QPM RF: 0 ranitidine HCl [Acid Tile Grader (ranitidine)] 150 mg Tablet 150 mg PO QAM RF: 0 gabapentin 100 mg Capsule 100 mg PO HS RF: 0 magnesium 200 mg Tablet 200 mg PO QAM RF: 0 Calcium 600 + D(3) 600 mg calcium- 200 unit Capsule 1 cap PO QAM RF: 0 omega 5-wnl-baz-fish oil [Fish Oil] 1,000 mg (120 mg-180 mg) Capsule 1 cap PO QAM RF: 0 Habitrol Patch 1 dose topical DAILY RF: 0 Discontinued naproxen sodium [Aleve] 220 mg Tablet 220 mg PO BID PRN (Reason: Pain) RF: 0 Discharge Orders: Discharge Order (Routine); Ordered 01/26/19 Ordered By: Surya Nguyen Admission Data Admit Date/Time: 01/20/19 11:54 Attending Provider: Surya Nguyen Admit Provider: Surya Nguyen Primary Care Provider: David Rivero
[2019-01-26] MEDS: ONDANSETRON INJ 2 MG/ML 2 ML VIAL IV PRN (12:01)
== END 2019-01-26 13:05 | disposition home or self-care (01) | DRG 460 ==
LOC: ASU 07:34 → 3E 11:54